=== PATIENT | female | born 1980 | race Caucasian/White ===

== ENCOUNTER 2019-09-19 13:25 | Emergency (ER) | payer OTHER ==
[~2019-09-19] VITALS: Ht 167.6 cm; Wt 63.5 kg
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
[2019-09-19 13:58] VITALS: BP 122/73
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
[2019-09-19] MEDS ORDERED: IBUPROFEN600 MG ORAL (14:06)
[2019-09-19] MEDS ORDERED: ROBAXIN-750750 MG PO (14:06)
[2019-09-19] MEDS ORDERED: LIDODERM700 M1 TOPIC (14:06)
[2019-09-19] MEDS ORDERED: Methocarbamol 750mg tab ORAL ONE (14:15)
--- NOTE | 2019-09-19 14:20 | NUR ---
ED Nurse Note: pt went to xray
--- NOTE | 2019-09-19 14:31 | NUR ---
ED Nurse Note: pt returned from xray
[2019-09-19 15:15] VITALS: BP 125/76
--- NOTE | 2019-09-19 15:15 | NUR ---
ED Nurse Note: Pt calm resting in bed
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
[2019-09-19 15:48] VITALS: BP 115/73
--- NOTE | 2019-09-19 15:48 | NUR ---
ER DISCHARGE NOTE: Patient is cleared to be discharged per ERMD, pt is aox4, on room air, with stable vital signs. pt was given dc and prescription instructions, pt was able to verbalize understanding, pt id band removed. pt is able to ambulate with steady gait. pt took all belongings.
== END 2019-09-19 16:00 | disposition home or self-care (01) ==
LOC: EMR 14:50
DX: S39.012A Strain of muscle, fascia and tendon of lower back, initial encounter (principal); V43.52XA Car driver injured in collision with other type car in traffic accident, initial encounter; Y92.410 Unspecified street and highway as the place of occurrence of the external cause; M62.830 Muscle spasm of back
CPT/HCPCS: 72020; 99283